=== PATIENT | female | born 1975 | race Caucasian/White ===

== ENCOUNTER 2021-09-22 13:51 | Emergency (ER) | payer SELFPAY ==
[2021-09-22 14:15] VITALS: BP 125/82; PULSE 98; TEMP 98.3; BMI 36.6
== END 2021-09-22 15:30 | disposition home or self-care (01) ==
LOC: JER 13:51
DX: R06.02 Shortness of breath (principal)
CPT/HCPCS: 87804; 87807; 99283-25; C9803; U0003; U0005